=== PATIENT | male | born 1945 | race Two or more races ===

== ENCOUNTER 2024-04-30 00:35 | Emergency (ER) | payer MEDICARE, OTHER ==
[~2024-04-30] VITALS: Ht 185.4 cm; Wt 97.0 kg
[2024-04-30 00:57] VITALS: PULSE 76; RESP 16; O2SAT 96
--- NOTE | 2024-04-30 01:53 | ED.PDOC ---
History of Present Illness HPI Comments 79 y/o M, with a Hx of dementia and HTN, is BIBA with c/o ALOC w/confusion, today. Per EMS report, bystanders called after finding the patient confused at a gas station's parking lot, this morning. EMS staff noted on getting a hold of patient's spouse, whose filed a missing person report for him, recently, for the third time following recent dementia onset diagnosis. Patient, upon arrival to ED and time of assessment, has no current complaints and was reported by EMS to be oriented to self and date only. Further Hx cannot be obtained at this time, due to patient's current condition and absence of family/wardrobe image consultant historians. 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 Past Medical History PAST MEDICAL HISTORY: Dementia, HTN Neurological: reports: others (ALOC w/confusion ) All Other Systems: Reviewed and Negative (negative unless otherwise stated above or in HPI) Physical Exam General Appearance: No Apparent Distress, Normal HEENT: Normal ENT Inspection, Pharynx Normal, TMs Normal Neck: Full Range of Motion, Non-Tender, Normal, Normal Inspection Respiratory: Chest Non-Tender, Lungs Clear, No Accessory Muscle Use, No Respiratory Distress, Normal Breath Sounds Cardiovascular: No Edema, No JVD, No Murmur, No Gallop, Normal Peripheral Pulses, Regular Rate/Rhythm Breast Exam: Deferred Gastrointestinal: No Organomegaly, Non Tender, No Pulsatile Mass, Normal Bowel Sounds, Soft Genitalia: Deferred Pelvic: Deferred Rectal: Deferred Extremities: No calf tenderness, Normal capillary refill, Normal inspection, Normal range of motion, Non-tender, No pedal edema Musculoskeletal : Apperance: Normal Neurologic: Alert (A&Ox1), 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 Was a procedure done?: No EKG EKG : Pulse Rate (adult): 69 [place]: Normal Cardiac Rhythm: NSR Block: RBBB Hypertrophy: None ST: Normal Comments LAFB Differential Dx Considerations may include: encephalopathy, electrolyte imbalance, organic brain syndrome, idiopathic, CVA, TIA, intracranial bleed, dementia X-Ray, Labs, Meds, VS Vital Signs Date Time Temp Pulse Resp B/P (MAP) Pulse Ox O2 Delivery O2 Flow Rate FiO2 04/30/24 01:52 69 04/30/24 00:57 98.3 76 16 176/92 (120) 96 98.3 04/30/24 00:57 76 16 96 Room Air* 0 21 04/30/24 00:41 98.3 76 16 176/92 (120) 96 04/30/24 00:37 69 Lab Test 04/30/24 02:11 Range/Units White Blood Count 10.0 4.4-10.8 10^3/uL Red Blood Count 3.66 L 4.5-5.90 10^6/uL Hemoglobin 10.5 L 13.5-17.5 g/dL Hematocrit 31.3 L 41.0-53.0 % Mean Corpuscular Volume 85.5 80.0-100.0 fL Mean Corpuscular Hemoglobin 28.6 28.0-32.0 pg Mean Corpuscular Hemoglobin Concent 33.4 32.0-36.0 g/dL Red Cell Distribution Width 16.0 H 11.8-14.3 % Platelet Count 218 140-450 10^3/uL Mean Platelet Volume 7.6 6.9-10.8 fL Neutrophils (%) (Auto) 70.3 37.0-80.0 % Lymphocytes (%) (Auto) 20.4 10.0-50.0 % Monocytes (%) (Auto) 7.1 0.0-12.0 % Eosinophils (%) (Auto) 1.5 0.0-7.0 % Basophils (%) (Auto) 0.7 0.0-2.0 % Neutrophils # (Auto) 7.1 1.6-8.6 10 ^3/uL Lymphocytes # (Auto) 2.1 0.4-5.4 10 ^3/uL Monocytes # (Auto) 0.7 0-1.3 10 ^3/uL Eosinophils # (Auto) 0.2 0-0.8 10 ^3/uL Basophils # (Auto) 0.1 0-0.2 10 ^3/uL Nucleated Red Blood Cells 0.3 % Sodium Level 143 136-145 mmol/L Potassium Level 4.1 3.5-5.1 mmol/L Chloride Level 110 H 98-107 mmol/L Carbon Dioxide Level 25 20-31 mmol/L Anion Gap 8 5-15 Blood Urea Nitrogen 26 H 9-23 mg/dL Creatinine 1.70 H 0.700-1.30 mg/dL Glomerular Filtration Rate Calc 40 >90 mL/min BUN/Creatinine Ratio 15.3 10.0-20.0 Serum Glucose 90 74-106 mg/dL Calcium Level 9.0 8.7-10.4 mg/dL Troponin I High Sensitivity Pending [place] [id number] Ph: [phone] DIAGNOSTIC IMAGING Diagnostic Imaging Report : [id number] Signed PATIENT: MARIA ESTHER VO ACCT: [id number] UNIT: [id number] : 1945 LOC: ER ROOM / BED: / AGE / SEX: 79 / M ADM STATUS: REG ER SERVICE 0143 ORDERING PHYSICIAN: LETI MANZO MD PROCEDURE(s): HWOCT - HEAD WITHOUT CONTRAST REASON: dementia ORDER NUMBER(s): [id number], ACCESSION NUMBER(s): [id number] Examination: HWOCT CLINICAL INDICATION: dementia COMPARISON: None. CONTRAST USED: None. TECHNIQUE: The examination was performed obtaining 5 mm slices without contrast. Multiplanar reconstructions were obtained. CT scan done according to ALARA (As Low As Reasonably Achievable). FINDINGS: SUPRATENTORIAL BRAIN: Cerebral Hemispheres: There is no midline shift or mass effect, intra or extra- axial fluid collections or hemorrhage. Periventricular White Matter/Basal Ganglia: No abnormal areas of altered attenuation within the periventricular white matter or basal ganglia. POSTERIOR FOSSA: The brainstem is normal and the visualized cerebellar hemispheres are unremarkable. VENTRICULAR SYSTEM: Disproportionate dilatation of bilateral lateral, third ventricle is seen as compared to the sulcal spaces. Suggest clinical correlation to rule out normal pressure hydrocephalus. There is no evidence of transependymal flow of cerebrospinal fluid. Generalized prominence of the ventricular system, cisterns, and sulcal spaces is seen suggestive of age- related cortico-cerebral atrophy. SKULL BASE AND PARASELLAR REGION: The Skull base is normal with no parasellar masses or abnormalities identified. CALVARIUM AND SCALP REGION: No abnormality is seen. PARANASAL SINUSES: No significant inflammatory changes are identified in the paranasal sinuses. IMPRESSION: 1. Disproportionate dilatation of bilateral lateral, third ventricle is is seen as compared to the sulcal spaces. Suggest clinical correlation to rule out normal pressure hydrocephalus. 2. Age-related cortico-cerebral atrophy. 3. No acute infarct or space-occupying lesion is seen. 4. No intracranial hemorrhage or calvarial fracture. 5. Suggest MRI brain correlation if clinically deemed necessary. Electronically Signed 04/30/2024 03:05 Keren Ruff ATED BY: POOJA WHITE MD DICTATED DATE/TIME: 04/30/24304 SIGNED BY: POOJA WHITE MD SIGNED DATE/TIME: 04/30/24304 CC: [place] [id number] Ph: [phone] DIAGNOSTIC IMAGING Diagnostic Imaging Report : [id number] Signed PATIENT: MARIA ESTHER VO ACCT: [id number] UNIT: [id number] : 1945 LOC: ER ROOM / BED: / AGE / SEX: 79 / M ADM STATUS: REG ER SERVICE 2 ORDERING PHYSICIAN: LETI MANZO MD PROCEDURE(s): CXRP - CHEST PORTABLE REASON: dementia ORDER NUMBER(s): [id number], ACCESSION NUMBER(s): [id number] Examination: CXRP Clinical Indication: dementia Comparison: None. Technique: Frontal radiograph of the chest was obtained. 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 Stimulator wire in the mid thoracic spine. Lungs are clear and well expanded with no pulmonary infiltrate or pleural effusion. There is no pneumothorax. The cardiomediastinal silhouette is within normal limits. Mild tortuosity of the descending thoracic aorta. No acute osseous abnormality is seen. Mild S-shaped scoliosis of the thoracolumbar spine. Impression: 1. 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 2. Stimulator wire in the mid thoracic spine. 3. No acute infiltrates or effusion. Electronically Signed 04/30/2024 03:14 Keren Ruff ATED BY: POOJA WHITE MD DICTATED DATE/TIME: 04/30/24313 SIGNED BY: POOJA WHITE MD SIGNED DATE/TIME: 04/30/24313 CC: CBC and CMP were normal. The patient was placed in ED ops. 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 Time of 1ST Reevaluation: 01:20 Reevaluation 1ST: Unchanged Patient Education/Counseling: Other (patient is altered) Family Education/Counseling: No Family Present Departure 1 Departure Time of Disposition: 03:40 Impression: Primary Impression: Altered mental status Qualified Codes: R41.82 - Altered mental status, unspecified Additional Impressions: Metabolic encephalopathy Dementia Qualified Codes: F03.B0 - Unspecified dementia, moderate, without behavioral disturbance, psychotic disturbance, mood disturbance, and anxiety Disposition: 30 STILL A PATIENT Admit to: Other (ed obs) Condition: Guarded Critical Care Note Critical Care Time?: No Stability Stability form required: No Heart Score Heart Score: Heart Score Response (Comments) Value History N/A 0 EKG N/A 0 Age N/A 0 Risk Factors N/A 0 Troponin N/A 0 Total 0 I personally scribed for LETI MANZO MD ([email or web address]) on 04/30/24 at 01:52. Electronically submitted by Ward Finn [email or web address]). LETI MANZO MD Apr 30, 2024 01:52
[2024-04-30 02:41] LABS: Basophils # (auto) 0.1 10 ^3/uL (0-0.2); Basophils % (auto) 0.7 % (0.0-2.0); Eosinophils # (auto) 0.2 10 ^3/uL (0-0.8); Eosinophils % (auto) 1.5 % (0.0-7.0); Hematocrit 31.3 % (41.0-53.0); Hemoglobin 10.5 g/dL (13.5-17.5); Lymphocytes # (auto) 2.1 10 ^3/uL (0.4-5.4); Lymphocytes % (auto) 20.4 % (10.0-50.0); Mean Corpuscular Hemoglobin 28.6 pg (28.0-32.0); Mean Corpuscular Hgb Conc. 33.4 g/dL (32.0-36.0); Mean Corpuscular Volume 85.5 fL (80.0-100.0); Monocytes # (auto) 0.7 10 ^3/uL (0-1.3); Monocytes % (auto) 7.1 % (0.0-12.0); Neutrophils # (auto) 7.1 10 ^3/uL (1.6-8.6); Neutrophils % (auto) 70.3 % (37.0-80.0); Nucleated Red Blood Cells % 0.3 %; Platelet Count (auto) 218 10^3/uL (140-450); Red Blood Cells 3.66 10^6/uL (4.5-5.90)
[2024-04-30 02:49] LABS: Potassium 4.1 mmol/L (3.5-5.1); Sodium 143 mmol/L (136-145)
[2024-04-30 02:50] LABS: Anion Gap 8 (5-15); Carbon Dioxide 25 mmol/L (20-31)
[2024-04-30 02:55] LABS: BUN/Creatinine Ratio 15.3 (10.0-20.0); Glucose 90 mg/dL (74-106)
--- NOTE | 2024-04-30 03:06 | DVH ---
Examination: HWOCT CLINICAL INDICATION: dementia COMPARISON: None. CONTRAST USED: None. TECHNIQUE: The examination was performed obtaining 5 mm slices without contrast. Multiplanar reconstr uctions were obtained. CT scan done according to ALARA (As Low As Reasonably Achievable). FINDINGS: SUPRATENTORIAL BRAIN: Cerebral Hemispheres: There is no midline shift or mass effect, intra or extra-axial fluid collection s or hemorrhage. Periventricular White Matter/Basal Ganglia: No abnormal areas of altered attenuation within the periv entricular white matter or basal ganglia. POSTERIOR FOSSA: The brainstem is normal and the visualized cerebellar hemispheres are unremarkable. VENTRICULAR SYSTEM: Disproportionate dilatation of bilateral lateral, third ventricle is seen as comp ared to the sulcal spaces. Suggest clinical correlation to rule out normal pressure hydrocephalus. T here is no evidence of transependymal flow of cerebrospinal fluid. Generalized prominence of the vent ricular system, cisterns, and sulcal spaces is seen suggestive of age-related cortico-cerebral atroph y. SKULL BASE AND PARASELLAR REGION: The Skull base is normal with no parasellar masses or abnormalities identified. CALVARIUM AND SCALP REGION: No abnormality is seen. PARANASAL SINUSES: No significant inflammatory changes are identified in the paranasal sinuses. IMPRESSION: 1. Disproportionate dilatation of bilateral lateral, third ventricle is is seen as compared to the s ulcal spaces. Suggest clinical correlation to rule out normal pressure hydrocephalus. 2. Age-related cortico-cerebral atrophy. 3. No acute infarct or space-occupying lesion is seen. 4. No intracranial hemorrhage or calvarial fracture. 5. Suggest MRI brain correlation if clinically deemed necessary. Electronically Signed 04/30/2024 03:05 Keren Ruff
--- NOTE | 2024-04-30 03:15 | DVH ---
Examination: CXRP Clinical Indication: dementia Comparison: None. Technique: Frontal radiograph of the chest was obtained. 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 Stimulator wire in th e mid thoracic spine. Lungs are clear and well expanded with no pulmonary infiltrate or pleural effu corky. There is no pneumothorax. The cardiomediastinal silhouette is within normal limits. Mild tortuosity of the descending thoracic aorta. No acute osseous abnormality is seen. Mild S-shaped scoliosis of the thoracolumbar spine. Impression: 1. 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 2. Stimulator wire in the mid thoracic spine. 3. No acute infiltrates or effusion. Electronically Signed 04/30/2024 03:14 Keren Ruff
[2024-04-30 03:35] LABS: Blood Urea Nitrogen 26 mg/dL (9-23); Chloride 110 mmol/L (98-107)
--- NOTE | 2024-04-30 06:36 | ECG ---
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
[2024-04-30 08:05] VITALS: BP 199/88; PULSE 71; RESP 16; TEMP 98.2; O2SAT 98
[2024-04-30 11:47] LABS: Urine Bacteria None Seen /hpf (None Seen)
[2024-04-30 12:21] LABS: Urine Blood 2+ /uL (Negative); Urine Clarity Clear (Clear); Urine Color Yellow (Yellow); Urine Protein, UAD 3+ (Negative); Urine Specific Gravity 1.023 (1.001-1.035); Urine Squamous Epithelial Cell FEW /hpf (<5); Urine Urobilinogen Normal (Negative); Urine WBC 2 /hpf (0 - 3)
== END 2024-04-30 11:55 | disposition home or self-care (01) ==
LOC: ER 00:35 → EDBD 00:35 → ER 11:55
DX: F03.90 Unspecified dementia, unspecified severity, without behavioral disturbance, psychotic disturbance, mood disturbance, and anxiety (principal); R40.4 Transient alteration of awareness; G93.41 Metabolic encephalopathy; I10 Essential (primary) hypertension; Z88.0 Allergy status to penicillin
CPT/HCPCS: 36415; 70450; 71045; 80048; 81001; 84484; 85025; 93005